=== PATIENT | male | born 1995 | race Caucasian/White ===

== ENCOUNTER 2023-11-03 13:39 | Emergency (ER) | payer MEDICAID ==
[~2023-11-03] VITALS: Ht 180.3 cm; Wt 77.1 kg
[2023-11-03 13:40] VITALS: PULSE 119; RESP 19; TEMP 98.1; O2SAT 96
[2023-11-03] MEDS: LORazepam 2 MG/ML VIAL IVP ONE ×4 (14:29→21:44)
[2023-11-03] MEDS: ONDANSETRON HCL 4 MG/2 ML VIAL IVP ONE ×2 (14:29→18:49)
[2023-11-03] MEDS: NACL 0.9% 1,000 ML IV ONE (14:30)
[2023-11-03 14:38] LABS: BASOPHILS % (AUTO) 0.5 % (0.0-2.0); EOSINOPHILS # (AUTO) 0.1 K/uL (0.0-0.4); EOSINOPHILS % (AUTO) 2.7 % (0.0-4.0); HEMATOCRIT 42.5 % (36-54); HEMOGLOBIN 14.8 g/dL (14.0-18.0); LYMPHOCYTES # (AUTO) 1.7 K/uL (1.0-5.5); LYMPHOCYTES % (AUTO) 31.6 % (20.5-51.5); MEAN CORPUSCULAR HEMOGLOBIN 31 pg (27-31); MEAN CORPUSCULAR HGB CONC 35 % (32-36); MEAN CORPUSCULAR VOLUME 90 fL (79.0-98.0); MONOCYTES # (AUTO) 0.7 K/uL (0.0-1.0); MONOCYTES % (AUTO) 12.6 % (1.7-9.3); NEUTROPHILS # (AUTO) 2.8 K/uL (1.8-7.7); NEUTROPHILS % (AUTO) 52.6 % (40.0-70.0); PLATELET COUNT (AUTO) 286 K/uL (130-430); RED BLOOD CELL COUNT(AUTO) 4.74 MIL/uL (4.2-6.2); RED CELL DISTRIBUTION WIDTH 14.4 % (9.0-15.0); WHITE BLOOD COUNT (AUTO) 5.2 K/uL (4.8-10.8)
[2023-11-03 15:02] LABS: ALBUMIN 4.1 g/dL (3.4-4.8); CALCIUM 8.2 mg/dL (8.4-11.0); CREATININE 0.96 mg/dL (0.55-1.30); POTASSIUM 3.5 mmol/L (3.5-5.1); TOTAL BILIRUBIN 0.6 mg/dL (0.0-1.0); TOTAL PROTEIN, SERUM 7.2 g/dL (6.4-8.3)
[2023-11-03 15:10] LABS: BILIRUBIN,DIRECT 0.1 mg/dL (0.0-0.3)
[2023-11-03] MEDS ORDERED: HYDROcodone/ACETAMIN 5-325 MG TAB (NORCO/ VICODIN) PO ONE (15:15)
[2023-11-03 15:54] LABS: BARBITURATE, URINE NEGATIVE (NEG <=200); BENZODIAZEPINE, URINE POSITIVE (NEG <=150); CANNABINOID, URINE NEGATIVE (NEG <=50); COCAINE, URINE NEGATIVE (NEG <=150); METHAMPHETAMINES SCREEN,URINE NEGATIVE (NEG <=500); OPIATE, URINE NEGATIVE (NEG <=100); PHENCYCLIDINE SCREEN,URINE NEGATIVE (NEG <=25); UR TRICYCLIC ANTIDEPRESSANTS NEGATIVE (NEG <=300); URINE AMPHETAMINE NEGATIVE (NEG <=500); URINE METHADONE NEGATIVE (NEG <=200); URINE OXYCODONE SCREEN NEGATIVE (NEG <=100)
[2023-11-03] MEDS ORDERED: FOLIC ACID 1 MG, THIAMINE HCL 100 MG, MAGNESIUM SULFATE 1 GM, MVI 10 ML in NACL 0.9% 1,... IV ONE (17:30)
[2023-11-03] MEDS: THIAMINE HCL 200 MG/2 ML VIAL IM ONE (18:10)
[2023-11-03] MEDS: THIAMINE HCL 100 MG, MAGNESIUM SULFATE 1 GM in NS 100 ML IV ONE (18:11)
[2023-11-03] MEDS: FOLIC ACID 1 MG, MVI 10 ML in NACL 0.9% 1,000 ML IV ONE (18:11)
[2023-11-03] MEDS ORDERED: ONDANSETRON HCL 4 MG/2 ML VIAL ONE (18:42)
[2023-11-04 01:02] VITALS: BP_SYST 93; PULSE 88; RESP 12; TEMP 99; O2SAT 95
== END 2023-11-04 01:02 | disposition short-term general hospital (02) ==
LOC: SED 13:39
DX: F10.129 Alcohol abuse with intoxication, unspecified (principal); R00.0 Tachycardia, unspecified; F41.9 Anxiety disorder, unspecified; R11.2 Nausea with vomiting, unspecified; R19.7 Diarrhea, unspecified; Z79.899 Other long term (current) drug therapy; Z20.822 Contact with and (suspected) exposure to COVID-19; Y90.6 Blood alcohol level of 120-199 mg/100 ml
CPT/HCPCS: 99285; 96365; 96366; 96375; 96361; 87426; 80307; 80076; 80048; 85025; 36415; 93005; 96368; 96376; J3490; J2060; J3475; J2405; J3411; J7030; G0482